=== PATIENT | male | born 1945 | race Caucasian/White ===

== ENCOUNTER 2022-10-03 07:46 | Outpatient (CLI) | payer MEDICARE, BC, SELFPAY | END 2022-10-03 07:47 | disposition home or self-care (01) | LOC: NFLDREF 16:38 | PROVIDERS: PCP Internal Medicine; Referring Provider Internal Medicine; Visit Provider Internal Medicine | DX: Z00.00 Encounter for general adult medical examination without abnormal findings (principal); E78.5 Hyperlipidemia, unspecified; R41.89 Other symptoms and signs involving cognitive functions and awareness; Z12.5 Encounter for screening for malignant neoplasm of prostate; Z13.9 Encounter for screening, unspecified | CPT/HCPCS: 80053; 80061; 84153 ==

== ENCOUNTER 2022-12-15 08:00 | Outpatient (RCR) | payer MEDICARE, BC, SELFPAY ==
--- NOTE | 2022-10-27 15:00 | PT.OPEX ---
PT [place] Outpatient Eval INITIAL EVAL MEDICARE REQUIRES SIGNATURE PT [facility] Outpatient Eval Start: 10/27/22 11:40 Freq: Status: Active Protocol: Document 10/27/22 11:40 HILTON (Rec: 10/27/22 15:00 HILTON [id number]) E-signed By Hever Jenkins DPT Physical Therapy Outpatient Evaluation Insurance Information Recert Due Date 01/20/23 Insurance Name Medicare B,Blue Cross/Blue Shield Medical Diagnosis r ankle pain Treating Diagnosis R ankle pain muscle weakness Referring MD adi welch Subjective Subjective Vincent comes into clinic dealing with R ankle pain. Feels like it has been aching more recently when walking outside and such. Has been using inserts the past year or so and they helped the pain. Once the pain dissipated he took the inserts out the pain came back. Since using inserts again he has not been getting as much relief as before. 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 When walking/standing around the house or outside if he does not have his shoes or incerts in he feels increased pain on the lateral foot and ankle. Current Work Status Retired Precautions Treatment Precautions/Contraindications cognitive impairment Objective Other/Pertinent Objective FOOT ALIGNMENT/GAIT decreased pace, increased ER on R ankle flat feet , increased ankle eversion in stance ANKLE ROM PF: 40-45 B DF: WNL B INversion: R-10 L- 12 EVersion: R-15 L-18 LE MMT WNL on L hip abd 4-/ 10 on R Dorsiflexion/heel walk: R 4/5 Plantarflexion/toe walk:R 4+/ 5 INV: R 4+/5 MYRIAM: R 4+/5 Great Toe Extension: R/5 L/5 JOINT MOBILITY/PALPATION increased tenderness with proximal 5th metatarsal palpation, tenderness with palpation inferior of lateral malleoli SPECIAL TESTS Talar tilt Test: - Anterior Drawer Test:- External Rotation Test:- Windlass test: - Tarsal Tunnel Test:- TX: increased time spent discussing ankle eversion red-grn tb 2x 20 pf inversion red-grn tb 2x 20 trialed red tb-grn inversion 2x 10, inversion iso x 10 with 5 sec holds red-grn tb marching supine 2x 15 SL hip abd 2x10 Assessment Assessment/Impression Pt is a 77 yr old male who presents with concerns of R ankle pain. Patient also has notable objective findings including limited ROM, impaired balance, decreased strength also likely contributing to the problem. Patient is a good candidate for skilled therapy to target deficits described above. Skilled PT intervention is necessary for use of therapeutic exercise manual therapy, neuromuscular re- education, gait training, and therapeutic activity. Functional impairments include difficulty with: walking, stairs, standing . See appropriate sections of PT eval for complete list of goals and POC. D/C plan and criteria is for pt to achieve the goals as listed below or until max rehab potential is met. Pt was agreeable with plan of care and goals established Plan of Care Rehabilitation Potential Good Physical Therapy Goals STG Patient will demonstrate/ report ability to walk for 30 minutes with pain level <1/10, to allow for community and household ambulation within 4 weeks Patient will demonstrate/ report ability to stand for 30 minutes with pain level <1/10 , to allow for home , recreational and work tasks within 4 weeks LTG Patient will demonstrate/ report ability to walk for 60 minutes outside with pain level <1/10, to allow for community and household ambulation within 8 weeks Patient will demonstrate/ report ability to stand for 60 minutes with pain level <1/10 , to allow for home , recreational and work tasks within 8 weeks Pt will be independent with HEP within 8 weeks to allow for independence and continued improvement past formal therapy Coordination/Communication With Referral Source Treatment Plan/Direct Interventions Gait Training,Joint Mobilization,Manual Therapy, Neuromuscular Re-ed,Self-Care/ Home Management,Therapeutic Activities,Therapeutic Exercises Frequency/Duration 1-2 a week for 6-12 weeks Patient Will Be Discharged From Therapy Completion of LTG(s), Independent w/HEP, Independently Progressing Evaluation Billing Untimed Code Treatment Minutes 20 Complexity Low Certification Information Initial Certification Date 10/27/22 Ending Certification Date 01/20/23 Physician Comment/Change : Physician NPI Number #
== END 2022-12-15 09:19 | disposition home or self-care (01) ==
PROVIDERS: PCP Internal Medicine; Visit Provider Internal Medicine
DX: M25.571 Pain in right ankle and joints of right foot (principal); Z51.89 Encounter for other specified aftercare
CPT/HCPCS: 97110; 97161

== ENCOUNTER 2023-03-22 19:34 | Outpatient (CLI) | payer MEDICARE, BC, SELFPAY ==
--- NOTE | 2023-03-28 08:46 | W.PM.SLEEP ---
Sleep Study Details Details Interpreting Provider: Mena Date of Sleep Study: 03/22/23 Sleep Study Details: STUDY TYPE:? Home unattended ? BMI:? 25.7 ORDERING PROVIDER:? Rosita INDICATION:? Concerns about sleep apnea ? SLEEP SUMMARY:? 401.8 minutes monitored RESPIRATORY SUMMARY:? AHI 49, central apnea index 12.5 Low oxygen 77 3.9% of study oxygenation less than 90% Snoring 0.3% PERIODIC LIMB MOVEMENTS OF SLEEP:? Not recorded during home study CARDIAC:? Cardiac 53-88 beats per minute, mean 61.6 beats per minute IMPRESSION:? 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
== END 2023-03-22 19:35 | disposition home or self-care (01) ==
PROVIDERS: PCP Internal Medicine; Visit Provider Internal Medicine
DX: G47.33 Obstructive sleep apnea (adult) (pediatric) (principal)
CPT/HCPCS: 95806

== ENCOUNTER 2023-05-11 08:52 | Outpatient (CLI) | payer MEDICARE, BC, SELFPAY | END 2023-05-11 08:53 | disposition home or self-care (01) | LOC: RAD 08:53 | PROVIDERS: PCP Internal Medicine; Visit Provider Internal Medicine | DX: G47.31 Primary central sleep apnea (principal); I34.0 Nonrheumatic mitral (valve) insufficiency | CPT/HCPCS: 93306 ==

== ENCOUNTER 2023-06-12 20:34 | Outpatient (CLI) | payer MEDICARE, BC, SELFPAY ==
--- NOTE | 2023-06-20 12:57 | W.PM.SLEEP ---
Sleep Study Details Details Interpreting Provider: Brandi Date of Sleep Study: 06/12/23 Sleep Study Details: STUDY TYPE:? Hospital polysomnogram with CPAP titration advancing to bilevel titration ? BMI:? 26.1 ORDERING PROVIDER:Harleen Becker INDICATION:? Previous positive sleep study here for titration ? SLEEP SUMMARY:? Total sleep time 176.5 minutes, arousal index 45.6 RESPIRATORY SUMMARY:? The overall AHI for this study is 26.9. The vast majority of the events are central. Final ASV settings were max pressure support of 10, minimum pressure support 4 EPAP of 7. This was not an adequate study as the final AHI was 20.9. PERIODIC LIMB MOVEMENTS OF SLEEP:? Index 98.9, index with arousal 3.7 CARDIAC:? Awake 60, asleep 60, PVCs were noted IMPRESSION:? This is an incomplete ASV titration study as the AHI remained elevated there is very little supine REM sleep. RECOMMENDATION: Would recommend repeat study for ASV titration.
== END 2023-06-12 20:35 | disposition home or self-care (01) ==
LOC: SLEEP 20:35
PROVIDERS: PCP Internal Medicine; Visit Provider Otolaryngology
DX: G47.31 Primary central sleep apnea (principal)
CPT/HCPCS: 95811

== ENCOUNTER 2023-10-26 14:00 | Outpatient (RCR) | payer MEDICARE, BC, SELFPAY ==
--- NOTE | 2023-10-06 17:08 | OT.OPGNE2 ---
OT Outpatient General/Neuro Eval OT Outpatient General/Neuro Eval* Start: 10/06/23 16:44 Freq: Status: Active Protocol: Document 10/05/23 16:46 SM (Rec: 10/06/23 17:05 SMW [id number]) E-signed By Debo Lowe OT OT Outpatient Evaluation Details Type Type Eval Complexity Low Insurance Information Insurance Information Insurance Information Medicare B Outpatient History/Precautions Current Condition Referring Provider Dr. Becker Medical Diagnoses Mild Cognitive impairment R41. 89 Treatment Diagnoses cognitive impairment Medical/Functional History Medical History Reviewed Yes Prior Level of Function/Mobility Patient lives with his spouse in an Co-op apartment. He is I in all ADLs and mobility without an AD. Social History Type of Dwelling Co-op senior apartment Number of Floors (Floors) 1 Number of Stairs to Enter (Stairs) 0 Lives With: Spouse Physical Barriers in Home Environment Level, No Step Employment Status Retired Patient Subjective Subjective Patient Subjective I don't know why I am here. I think my memory is ok. Cognitive Assessments Performed Oriented Patient oriented Person,Place Cognitive Assessments Performed Other Assessment Results Maze task Initially did not pass with 7 errors. Stated he didn't hear the directions 2nd attempt was WNL Will complete at subsequent visit. Home Safety/problem solving questionnaire. .11/[address] Making A and B Results [address] making A 51.[address] making B 1.5 minutes with 10+ errors. 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 The patient lives with his spouse in a senior Co-op apartment. He is I in all ADLs and mobility without an AD. He continues to drive. The patient lacks insight into his cognitive assessment. He was unable to state clearly why he was at this current appointment. His spouse states that patient often asks the same questions over again. He does use some humor to cover up cognitive deficits. The patient will benefit from skilled OT services to determine current cogntive status/off road driving ability and educate patient and spouse on compensatory strategies and recommendations to remain safe in his home and community. Occupational Therapy Treatment Plan - OP Potential Rehabilitation Potential Good Set Goals Goals Set with Patient No Goals Goals Within 5 visits, the patient will.. 1. complete cognitive assessments to determine baseline status and make recommendations for safety at home and the community. 2. along with his spouse, verbalizing understanding of cognitive results and implications. 3. along with spouse verbalize and put into daily routine, compensatory strategies to compensate for cognitive deficits. Treatment Plan Treatment Plan Evaluation,Self-Care/Home Management,Education Expected Frequency 1-2x Week Expected Duration 2-4 Weeks Certification Certification Statement I Certify That: Therapy Services Provided, Therapy Plan Established, Therapy Plan Reviewed Certification Information Clinic ID # [id number] Initial Certification Date 10/05/23 Recertification Due Date 10/05/23 Provider Signature Shows Agreement With POC & Medical Necessity Physician Comment/Change Comment or Changes Physician NPI Number #
== END 2024-02-23 23:59 | disposition home or self-care (01) ==
PROVIDERS: PCP Internal Medicine; Visit Provider Internal Medicine
DX: R41.89 Other symptoms and signs involving cognitive functions and awareness (principal); Z51.89 Encounter for other specified aftercare
CPT/HCPCS: 97165; 97535

== ENCOUNTER 2023-10-31 10:05 | Outpatient (CLI) | payer MEDICARE, BC, SELFPAY ==
--- OUTSIDE RECORDS SUMMARY | 2023-11-03 12:14 | XMS_ITS | Encounter Summary ---
Author Name Unknown Organization [facility] Address [address] [place] [address] Care Team Providers Care Mountain Bike Guide Name Role Phone Unavailable Primary Care Provider Unavailabl e Encounter Details Date Type Department Care Team (Late st Contact Info) Description 08/09/2004 Historical Ophthalmology [place] [address] Social History Tobacco Use Types Packs/Day Years Used Date Smoking Tobacco: Never Assessed Sex and Gender Information Value Date Recorded Sex Assigned at Male 01/03/2023 10:36 AM CDT Gender Identity Male 03/01/2018 10:12 AM CDT Sexual Orientation Straight 03/01/2018 10 :12 AM CDT documented as of this encounter Progress Notes * Eber Clinton M.D. - 08/09/2004 12:00 AM CST Eye General HISTORY OF PRESENT ILLNESS Seeing Dr. DEYSI Marie for ?bleph. pt notes that his vision does improve if he hold the skin off his lids. 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
--- OUTSIDE RECORDS SUMMARY | 2023-11-03 12:14 | XMS_ITS | Clinical Summary ---
Author Name Unknown Organization [facility] Address [place], [place] [address] Care Team Providers Care Real Property Evaluator Name Role Phone [facility] Primary Care Provider [phone] Conner Becker MD Unavailable [phone] Allergies No known active allergies Medications Medication Sig Dispensed Refills Start Date End Date Status ibuprofen (ADVIL; MOTRIN) 600 mg tablet Take 600 mg by mouth 4 times daily if needed. Maximum of 3200 mg in 24 hours. 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 (Primary Dx) Discharge Disposition: Home Self Care from Last 3 Months Family History Medical History Relation Name Comments Heart Disease Father Cancer Mother Relation Name Status Comments Father Mother Social History Tobacco Use Types Packs/Day Years Used Date Smoking Tobacco: Never Smokeless Tobacco: Never Alcohol Use Standard Drinks/Week Comments No 0 (1 standard drink = 0.6 oz pur e alcohol) Sex and Gender Information Value Date Recorded Sex Assigned at Not on file Gender Identity Not on file Sexual Orientation Not on file Obstetrics History Last Filed Vital Signs Vital Sign Reading Time Taken Comments Blood Pressure 156/89 09/28/2023 6:10 PM CDT Pulse 60 09/28/2023 6:10 PM CDT Temperature 36.4 ??C (97.5 ??F) 09/28/2023 6:10 PM CD T Respiratory Rate 18 09/28/2023 6:10 PM CDT Oxygen Saturation 96% 09/28/2023 6:10 PM CDT Inhaled Oxygen Concentration - - Weight 88.5 kg (195 lb) 08/12/2022 2:22 PM CATH LAB TECH Height 185.4 cm (6' 1) 08/12/2022 2:22 PM CATH LAB TECH Body Mass Index 25.73 08/12/2022 2:22 PM CATH LAB TECH Plan of Treatment Health Maintenance Due Date Last Done Comments Tdap 1954 Depression screening for age 12+ 1955 BMI (ht and wt on same day) for age 18+ 1961 Tetanus booster 1963 Zoster (shingles) series for age 50+ (1 of 2) 1993 Medicare Wellness for age 65+ 01/18/2008 Pneumococcal series for age 65+ (1 of 1 - PCV) 01/18/2008 COVID-19 vaccine series (2022-24 season) 2023 05/07/2022, 01/31/2022, 05/06/2021, Additional history exists Influenza for age 65+ 03/03/2024 Care Teams Real Property Evaluator Relationship Specialty Start Date End Date [facility] [address] [place] [address] PCP - General 04/11/21 Conner Becker MD [address] [place] [address] Internal Medicine 04/11/21
--- OUTSIDE RECORDS SUMMARY | 2023-11-03 12:14 | XMS_ITS | Encounter Summary ---
Author Name Unknown Organization [facility] Address [address] [place] [address] Care Team Providers Care Supervisor Silvering Department Name Role Phone Unavailable Primary Care Provider Unavailabl e Encounter Details Date Type Department Care Team (Late st Contact Info) Description 04/24/2014 Historical Ophthalmology RST O[facility] Obed Hebert M.D. [address] [place] [address] Social History Tobacco Use Types Packs/Day Years Used Date Smoking Tobacco: Never Assessed Sex and Gender Information Value Date Recorded Sex Assigned at Male 01/03/2023 10:36 AM CDT Gender Identity Male 03/01/2018 10:12 AM CDT Sexual Orientation Straight 03/01/2018 10 :12 AM CDT documented as of this encounter Progress Notes * Obed Hebert M.D. - 04/24/2014 1:35 PM CDT Eye General CHIEF COMPLAINT Routine eye exam HISTORY OF PRESENT ILLNESS Patient reports no vision concerns. Denies blurred vision, light flashes, floaters and ocular pain. SSK: The history is as recorded above. He has been followed as a glaucoma suspect based on a large cup to disc ratio. He has no vision or eye complaints. No family history of glaucoma, no history or eye injury and no history of corticosteroid use. IMPRESSION / REPORT / PLAN #1 Cataract both eyes Mild and not visually significant. Discussed. He has had prior LASIK surgery by [facility]. Reviewed the symptoms of worsening cataracts for which the patient should return. #2 Glaucoma Suspect The examination would make us only minimally suspicious for glaucoma. Discussed. Continue periodic examination. #3 s/p LASIK DIAGNOSIS #1 Cataract both eyes #2 Glaucoma Suspect #3 s/p LASIK [facility] Id: [id number] Status: Fnl documented in this encounter Plan of Treatment Not on file documented as of this encounter Visit Diagnoses Not on filedocumented in this encounter
--- OUTSIDE RECORDS SUMMARY | 2023-11-03 12:14 | XMS_ITS | Referral Summary ---
Author Name Unknown Organization [facility] Address [address] [place] [id number] Care Team Providers Care Loss Prevention Detective Name Role Phone No Ref-Primary, Physician Primary Care Provider Allergies No known active allergies Medications No known medications Active Problems No known active problems Resolved Problems Problem Noted Date Diagnosed Date Resolved Date Cervical pain 06/03/2014 06/24/2014 Cervicalgia 02/13/2014 03/21/2014 Immunizations Name Administration Dates Next Due TDAP (Adacel,Boostrix) 01/22/2022 Social History Tobacco Use Types Packs/Day Years Used Date Smoking Tobacco: Former Smokeless Tobacco: Never Adolescent Education Answer Date Record ed Getting School Help Needed Not on file 03/26 Sex and Gender Information Value Date Recorded Sex Assigned at Not on file Gender Identity Not on file Sexual Orientation Not on file Last Filed Vital Signs Vital Sign Reading Time Taken Comments Blood Pressure 126/82 01/22/2022 9:10 AM CDT Pulse 62 01/22/2022 9:10 AM CDT Temperature 36.1 ??C (97 ??F) 01/22/2022 9:10 AM CDT Respiratory Rate - - Oxygen Saturation 97% 01/22/2022 9:10 AM CDT Inhaled Oxygen Concentration - - Weight - - Height - - Body Mass Index - - Plan of Treatment Not on file Care Teams Loss Prevention Detective Relationship Specialty Start Date End Date No Ref-Primary, Physician PCP - General 01/22/22
--- OUTSIDE RECORDS SUMMARY | 2023-11-03 12:14 | XMS_ITS | Encounter Summary ---
Author Name Unknown Organization [facility] Address [address] [place] [address] Care Team Providers Care Student Life Advisor Name Role Phone Unavailable Primary Care Provider Unavailabl e Encounter Details Date Type Department Care Team (Late st Contact Info) Description 04/02/2009 Historical Ophthalmology RST OPH Bishop Michel M.D. Social History Tobacco Use Types Packs/Day Years Used Date Smoking Tobacco: Never Assessed Sex and Gender Information Value Date Recorded Sex Assigned at Male 01/03/2023 10:36 AM CDT Gender Identity Male 03/01/2018 10:12 AM CDT Sexual Orientation Straight 03/01/2018 10 :12 AM CDT documented as of this encounter Progress Notes * Bishop Michel M.D. - 04/02/2009 10:10 AM CDT Eye General CHIEF COMPLAINT Eye infection, right eye HISTORY OF PRESENT ILLNESS This is a 64 year old male here for an eye evaluation. Patient states in December 2008 he had an eye infection, right eye. There was mattering, tearing and pain. Also had a skin irritation at the corner of his eye. Patient was put on Polytrim for the eye infection. It cleared up the infection, but he had a reaction to the drops. He was then put on Tobradex and Doxycycline by mouth. The reaction had cl eared but there is some residual irritation at the corner of his right eye. Has not used for about one month. patient has no vision complaints. Patient denies ocular pain today. Denies flashes of light or floaters. Denies diplopia. IMPRESSION / REPORT / PLAN #1 History of conjunctivitis Now cleared #2 S/P lasik L eye #3 Residual hyperopia L Prescription for correction as above, patient?s option to fill. DIAGNOSIS #1 History of conjunctivitis #2 S/P lasik L eye #3 Residual hyperopia L CDM Reports - [facility] Id: [id number] Status: Fnl documented in this encounter Plan of Treatment Not on file documented as of this encounter Visit Diagnoses Not on filedocumented in this encounter
--- OUTSIDE RECORDS SUMMARY | 2023-11-03 12:14 | XMS_ITS | Encounter Summary ---
Author Name Unknown Organization [facility] Address [address] [place] [address] Care Team Providers Care Community Service Organization Director Name Role Phone Unavailable Primary Care Provider Unavailabl e Encounter Details Date Type Department Care Team (Late st Contact Info) Description 10/18/2001 Historical Ophthalmology RST OPH Angelo Foreman M.D. [address] [place] [address] Social History Tobacco Use Types Packs/Day Years Used Date Smoking Tobacco: Never Assessed Sex and Gender Information Value Date Recorded Sex Assigned at Male 01/03/2023 10:36 AM CDT Gender Identity Male 03/01/2018 10:12 AM CDT Sexual Orientation Straight 03/01/2018 10 :12 AM CDT documented as of this encounter Progress Notes * Angelo Foreman M.D. - 10/18/2001 12:00 AM CDT Eye General CHIEF COMPLAINT No vision concerns or complaints both eyes at this time HISTORY OF PRESENT ILLNESS No flashes, floaters, tearing, itching, pain, pressure both eyes. Routine check. LASIK OS (for monovision) in [place], approx. 4 years. No problems afterwards. Coping with monovision. Used to wear CLs, monovision. No dry eye symptoms. IMPRESSION / REPORT / PLAN 1. Presbyopia. Plan: Patient deferred refraction today. Is happy with present monovision and using over counter readers occasionally to augment near vision. 2. s/p LASIK. No complications. [facility] Id: [id number] Status: Fnl documented in this encounter Plan of Treatment Not on file documented as of this encounter Visit Diagnoses Not on filedocumented in this encounter
--- OUTSIDE RECORDS SUMMARY | 2023-11-03 12:14 | XMS_ITS ---
Author Name Unknown Organization [facility] Address [address] [place] [address] Care Team Providers Care Toddler Lead Teacher Name Role Phone Unavailable Unavailable Unavailable Surgery Details Not on file Complications Check Surgery Details section. Procedure Estimated Blood Loss Check Surgery Details section. Procedure Findings Check Surgery Details section. Procedure Specimens Taken Check Surgery Details section.
--- OUTSIDE RECORDS SUMMARY | 2023-11-03 12:14 | XMS_ITS | Encounter Summary ---
Author Name Unknown Organization [facility] Address [address] [place] [address] Care Team Providers Care Security Sme Name Role Phone Unavailable Primary Care Provider Unavailabl e Encounter Details Date Type Department Care Team (Late st Contact Info) Description 04/05/2013 Historical Ophthalmology RST OPH Danelle Cannon O.D. [address] [place] [address] Social History Tobacco Use Types Packs/Day Years Used Date Smoking Tobacco: Never Assessed Sex and Gender Information Value Date Recorded Sex Assigned at Male 01/03/2023 10:36 AM CDT Gender Identity Male 03/01/2018 10:12 AM CDT Sexual Orientation Straight 03/01/2018 10 :12 AM CDT documented as of this encounter Progress Notes * Danelle Cannon O.D. - 04/05/2013 12:41 PM CDT Eye General CHIEF COMPLAINT Screening for macular degeneration HISTORY OF PRESENT ILLNESS Here for annual physical and screening for macular degeneration. NO known family history of maculardegeneration. Pateint states that left eye needs correction. Was given a prescription last year butnever acted on it. Wants to know what makes the most sense as far as getting new contacts or getting lasik enhancements. Denies flashing lights and floaters. Denies ocular pressure and pain. IMPRESSION / REPORT / PLAN #1 Cataracts, both eyes - not visually significant monitor yearly #2 Large cup to disk ratio, both eyes --healthy rims, nml IOP, no family hx --doubt glaucoma --monitor yearly #3 S/P lasik L eye and Residual hyperopia L --mild rx now, rx given, prn DIAGNOSIS #1 Cataracts, both eyes - not visually significant #2 Large cup to disk ratio, both eyes #3 S/P lasik L eye and Residual hyperopia L CDM Reports - [facility] Id: [id number] Status: Fnl documented in this encounter Plan of Treatment Not on file documented as of this encounter Visit Diagnoses Not on filedocumented in this encounter
--- OUTSIDE RECORDS SUMMARY | 2023-11-03 12:14 | XMS_ITS | Clinical Summary ---
Author Name Unknown Organization [facility] Address [address] [place] [address] Care Team Providers Care Filing And Polishing Supervisor Name Role Phone Unavailable Primary Care Provider Unavailabl e Source Comments Patient records contain information from all sites at [facility]. For routine questions regarding patient records, call [phone] during business hours, M-F 8:00 AM - 5:00 PM Central Time. Record requests for emergency care only can be directed to [phone] at any time.[facility] Allergies No known active allergies Medications Medication Sig Dispensed Refills Start Date End Date Status acetaminophen (TYLENOL) 500 mg tablet Take 1-2 tablets by mouth every 4 (four) hours as needed. 06/30/2017 Active ibuprofen (ADVIL) 200 mg tablet Take 2-3 tablets by mouth as needed. 06/30/2017 Active metroNIDAZOLE (ROSADAN) 0.75 % gel Apply 1 application topically 2 (two) times a day. 3 04/21/2018 Active naproxen sodium (ALEVE/ANAPROX) 220 mg tablet Take 220 mg by mouth as needed. Active atorvastatin (LIPITOR) 20 mg tablet TAKE 1 TABLET BY MOUTH EVERY DAY 90 tablet 01/18/2021 Active Active Problems Problem Noted Date Diagnosed Date Hyperlipidemia 06/20/2016 Immunizations Name Administration Dates Next Due HZV (ZOSTAVAX) 06/02/2010 HepA Adult 11/09/2004,04/14/2004 Influenza (IM) Preservative Free 04/02/2009,04/04 Influenza Split 04/02/2011,05/17/2007 Influenza high dose QV(65 ye ars or older) (PF) 04/05/2022,03/30/2020 Influenza, Quadrivalent, Adj uvanted, Preservative Free 04/28/2021 Influenza, Unspecified 07/02/2018(Deferr ed: Other),06/02/2017,05/18/2016,04/02/2011 ,05/17/2007 PCV13 06/04/2015 PPSV23(Discontinued) 03/27/2008 RZV (SHINGRIX) 06/18/2020, 0,01/30/2020(Deferr ed: Other - will think about it) Td (Adult), adsorbed 12/10/1997,07/07/1992 Td Preservative Free (TENIVA C, DECAVAC) 03/27/2008 Td, (Adult) Unspecified 03/27/2008 Tdap 01/22/2022,02/21/2012 Zoster, Unspecified 01/30/2020(Deferred: Other) influenza high dose (65 year s or older) (PF) 03/30/2020,05/22/2019,07/06/2018,2016,05/18/2016,04/21/2015,06/02/2010 influenza vaccine quad (FLUZONE/FLUARIX) (6 months and older)(PF) 04/28/2021,07/03/2020,05/22/2019,2018,07/02/2018,06/02/2017,05/24/2016,1 07/18/2015,04/21/2015,04/02/2011, 010,04/02/2009,05/01/2008,05/17/2007 Family History Medical History Relation Name Comments Alcohol abuse Father Bruce Loja Closet drinker , especially later in life. 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 Diabetes Mother Sruthi Loja Later in life Hypertension Mother Sruthi Loja Melanoma Mother Sruthi Loja Lived to 90, had very fair skin Migraines Mother Sruthi Loja Stroke Mother Sruthi Loja Lived to 89 years of age ADD Son Nino Loja Diagnosed in 1982;[facility], new research; very helpful. Relation Name Status Comments Father Bruce Loja Maternal Grandmother Sruthi Sernax Mother Sruthi Loja Son Nino Loja Social History Tobacco Use Types Packs/Day Years Used Date Smoking Tobacco: Former Cigarettes 1 4 0 03/03/1961 - 09/14/1964 Smokeless Tobacco: Never Comments:As a young man, we didn't know about the dangers of smoking. In 1964 quit due to new knowledge. Alcohol Use Standard Drinks/Week Comments Yes 9 (1 standard drink = 0.6 oz pure alcohol) Often have a beer with or after dinner. Humiliation, Afraid, Rape, and Kick questionnair e Answer Date Recorded Within the last year, have y ou been afraid of your partner or ex-partner? No 01/03/2023 Within the last year, have y ou been humiliated or emotionally abused in other ways by your partner or ex-partner? No Within the last year, have y ou been kicked, hit, slapped, or otherwise physically hurt by your partner or ex-partner? No 01/03/2023 Within the last year, have y ou been raped or forced to have any kind of sexual activity by your partner or ex-partner? No 01/03/2023 Social Connection and Isolation Panel [NHANES] A nswer Date Recorded Frequency of Communication with Friends and Fami ly Not on file 01/29/2020 How often do you get togethe r with friends or relatives? Three times a week 01/29/2020 Attends [employer] Not on file 01/28 Active Member of Clubs or Organizations Not on f ile 01/29/2020 Attends Club or Organization Meetings Not on arnie e 01/29/2020 Marital Status Not on file 01/29/2020 AUDIT-C Answer Date Recorded Q1: How often do you have a drink containing alcohol? 4 or more times a week 07/17/2019 Q2: How many drinks containi ng alcohol do you have on a typical day when you are drinking? 1 or 2 0 Q3: How often do you have si x or more drinks on one occasion? Never 07/17/2019 Overall Financial Resource Strain (CARDIA) Answe r Date Recorded How hard is it for you to pa y for the very basics like food, housing, medical care, and heating? Not very hard 01/03/2023 PHQ-2 Answer Date Recorded PHQ-2 Score 2 01/03/2023 [facility] - Occupational Stress Questionnaire Answer Date Recorded Do you feel stress - tense, restless, nervous, or anxious, or unable to sleep at night because your mind is troubled all the time - these days? To some extent 01/29/2020 Exercise Vital Sign Answer Date Recorde d On average, how many days pe r week do you engage in moderate to strenuous exercise (like a brisk walk)? 6 days 01/03/2023 On average, how many minutes do you engage in exercise at this level? 20 min 01/03/2023 Hunger Vital Sign Answer Date Recorded Within the past 12 months, y ou worried that your food would run out before you got the money to buy more. Never true 01/04/20 Within the past 12 months, t he food you bought just didn't last and you didn't have money to get more. Never true 01/03/2023 PRAPARE - Transportation Answer Date Re corded In the past 12 months, has l ack of transportation kept you from medical appointments or from getting medications? No 10/2022 In the past 12 months, has l ack of transportation kept you from meetings, work, or from getting things needed for daily living? No 01/03/2023 Depression Answer Date Recor ded PHQ-9 Total Score (max 27) 3 01/28 Nutrition Answer Date Recorded Nutrition: EVOO Fat Source Unknown 01/03 On average, how many serving s of fruits and vegetables do you eat per day (serving size is equal to 1 cup or approximately the size of a tennis ball)? 3-5 01/03/2023 Dental Answer Date Recorded Dental: Regular Dentist Yes 07/07/19 Employment Answer Date Recorded Employment status Retired 01/03/2023 Housing Stability Answer Date Recorded What is your living situation today? I have a [facility] place to live 01/03/2023 Education Answer Date Recorded What is the highest level of school you have completed or the highest degree you have received? Bachelor's degree (e.g., BA, AB, BS) 07/17/2019 Sex and Gender Information Value Date Recorded Sex Assigned at Male 01/03/2023 10:36 AM CDT Gender Identity Male 03/01/2018 10:12 AM CDT Sexual Orientation Straight 03/01/2018 10 :12 AM CDT Last Filed Vital Signs Vital Sign Reading Time Taken Comments Blood Pressure 136/87 01/04/2023 7:[address] rage Pulse 56 01/04/2023 7:34 AM CDT Temperature 34.8 ??C (94.7 ??F) 01/30/2020 9:06 AM CD T Respiratory Rate - - Oxygen Saturation - - Inhaled Oxygen Concentration - - Weight 93.6 kg (206 lb 5.6 oz) 01/04/2023 7:34 A M CDT Height 178.2 cm (5' 10.16) 01/04/2023 7:34 AM C DT Body Mass Index 29.48 01/04/2023 7:34 AM CDT Plan of Treatment Health Maintenance Due Date Last Done Comments COVID-19 Vaccine (2022-2 4 season) 2023 05/07/2022, 01/31/2022, 05/06/2021, Additional history exists Fall Risk Screen (Annual) 07/03/2023 DTaP,Tdap,and Td Vaccines (3 - Td or Tdap) 01/23/2032 01/22/2022, 02/21/2012, 03/27/2008, Additional history exists Hepatitis A Vaccines Completed 11/09/2004, 04/14/20 04 Pneumococcal vaccine (65+ years) Completed 06/04/20 15, 03/27/2008 Zoster Vaccines Completed 06/18/2020, 03/04, 06/02/2010 Influenza Vaccine Completed 05/01/2023, , 04/28/2021, Additional history exists Advance Directives For more information, please contact: [phone] Documents on File Type Date Recorded Patient Vocational Rehab Consultant Expl anation Advance Directives 03/27/2008 12:00 AM Leg acy document. See document viewer.
--- OUTSIDE RECORDS SUMMARY | 2023-11-03 12:14 | XMS_ITS | Referral Summary ---
Author Name Unknown Organization [facility] Address [address] [place] [address] Care Team Providers Care Director Commercial Sales Name Role Phone Unavailable Primary Care Provider Unavailabl e Source Comments Patient records contain information from all sites at [facility]. For routine questions regarding patient records, call [phone] during business hours, M-F 8:00 AM - 5:00 PM Central Time. Record requests for emergency care only can be directed to [phone] at any time.[facility] Allergies No known active allergies Medications Medication [...] (6 months and older)(PF) 04/28/2021,07/03/2020,05/22/2019,2018,07/02/2018,06/02/2017,05/24/2016,1 07/18/2015,04/21/2015,04/02/2011, 010,04/02/2009,05/01/2008,05/17/2007 Social History Tobacco Use Types Packs/Day Years [...] relatives? Three times a week 01/29/2020 Attends [employer] Not on file 01/28 Active Member [...] Answer Date Recorded PHQ-2 Score 2 01/03/2023 [facility] - Occupational Stress Questionnaire Answer Date Recorded [...] your living situation today? I have a [facility] place to live 01/03/2023 Education Answer Date [...] 01/04/2023 7:34 AM CDT Plan of Treatment Not on file Advance Directives For more information, please contact: [phone] Documents on File Type Date Recorded Patient Files Supervisor Expl anation Advance Directives 03/27/2008 12:00 AM Leg acy document. See document viewer.
--- OUTSIDE RECORDS SUMMARY | 2023-11-03 12:14 | XMS_ITS | Clinical Summary ---
Author Name Unknown Organization [facility] Address [address] [place] [id number] Care Team Providers Care Rattlesnake Farmer Name Role Phone No Ref-Primary, Physician Primary [...] Mass Index - - Plan of Treatment Health Maintenance Due Date Last Done Comments ADVANCE CARE PLANNING 1943 ANNUAL REVIEW OF HM ORDERS 1943 GLUCOSE 1943 LIPID 1983 RSV VACCINE ( & 60+) (1 - 1-dose 60+ series) 2003 FALL RISK ASSESSMENT 01/18/2008 MEDICARE ANNUAL WELLNESS VISIT 01/18/2008 COVID-19 Vaccine ( season) 2023 05/06/2021, 09/15/2020, 08/11/2020 INFLUENZA VACCINE (#1) 2023 , 07/03/2020, 05/22/2019, Additional history exists PHQ-2 (once per calendar year) 2023 DTAP/TDAP/TD IMMUNIZATION (3 - Td or Tdap) 01/23/2032 01/22/2022, 02/21/2012, 03/27/2008, Additional history exists Pneumococcal Vaccine: 65+ Years Completed 06/04/2015, 03/27/2008 ZOSTER IMMUNIZATION Completed 06/18/2020, 03/30/2020, 06/02/2010 HPV IMMUNIZATION Aged Out No longer e ligible based on patient's age to complete this topic IPV IMMUNIZATION Aged Out No longer e ligible based on patient's age to complete this topic MENINGITIS IMMUNIZATION Aged Out No l onger eligible based on patient's age to complete this topic RSV MONOCLONAL ANTIBODY Aged Out No l onger eligible based on patient's age to complete this topic Care Teams Rattlesnake Farmer Relationship Specialty Start Date End Date No Ref-Primary, Physician PCP - General 01/22/22
--- OUTSIDE RECORDS SUMMARY | 2023-11-03 12:14 | XMS_ITS | Encounter Summary ---
Author Name Unknown Organization [facility] Address [address] [place] [address] Care Team Providers Care Supervisor Stone Name Role Phone Unavailable Primary Care Provider Unavailabl e Encounter Details Date Type Department Care Team (Late st Contact Info) Description 02/21/2012 Historical Ophthalmology [facility] Taryn Coronado M.D. [address] [place] [address] Social History Tobacco Use Types Packs/Day Years Used Date Smoking Tobacco: Never Assessed Sex and Gender Information Value Date Recorded Sex Assigned at Male 01/03/2023 10:36 AM CDT Gender Identity Male 03/01/2018 10:12 AM CDT Sexual Orientation Straight 03/01/2018 10 :12 AM CDT documented as of this encounter Progress Notes * Tayrn Coronado M.D. - 02/21/2012 12:13 PM CDT Eye General CHIEF COMPLAINT blurred vision HISTORY OF PRESENT ILLNESS Had LASIK for monovision many years ago. Does not want to wear glasses at all. May be interested inbifocal contacts. Blurry vision, both eyes, distance and near, constant. WMS: No recurrent conjunctivitis since last visit in 2008. Now needs to wear OTC reading glasses all the time, but no longer needs any distance correction for either eye. (OD used to be distance, OS near). Wore contact lenses for distance prior to LASIK OS, has a friend who uses bifocal contacts & would like to try this option. IMPRESSION / REPORT / PLAN #1 Cataracts, both eyes - not visually significant #2 Large cup to disk ratio, both eyes --healthy rims, nml IOP, no family hx #3 History of conjunctivitis in 2008 --no recurrence since, just very mild blepharitis changes #4 S/P lasik L eye and Residual hyperopia L --hyperopia has diminished since last exam in 2008. Pt not interested in Rx for distance #5 Presbyopia --Using OTC readers, would like to try bifocal contact for left eye. --[place] [facility] ~6-8wks, so pt will see someone closer to home for contact lens fitting Should have annual exam, would get baseline HVF 24-2 next visit DIAGNOSIS #1 Cataracts, both eyes - not visually significant #2 Large cup to disk ratio, both eyes #3 History of conjunctivitis in 2008 #4 S/P lasik L eye and Residual hyperopia L #5 Presbyopia CDM Reports - EYEGEN Id: [id number] Status: Fnl documented in this encounter Plan of Treatment Not on file documented as of this encounter Visit Diagnoses Not on filedocumented in this encounter
== END 2023-10-31 10:06 | disposition home or self-care (01) ==
LOC: NFLDREF 11-03 12:11
PROVIDERS: PCP Internal Medicine; Referring Provider Internal Medicine; Visit Provider Internal Medicine
DX: E78.5 Hyperlipidemia, unspecified (principal)
CPT/HCPCS: 80061

== ENCOUNTER 2024-10-04 08:15 | Outpatient (CLI) | payer MEDICARE, BC, SELFPAY | END 2024-10-04 08:16 | disposition home or self-care (01) | LOC: NFLDREF 13:20 | PROVIDERS: PCP Internal Medicine; Referring Provider Internal Medicine; Visit Provider Internal Medicine | DX: N40.0 Benign prostatic hyperplasia without lower urinary tract symptoms (principal); Z12.5 Encounter for screening for malignant neoplasm of prostate | CPT/HCPCS: 80053; G0103 ==